=== PATIENT | female | born 1955 | race Caucasian/White ===

== ENCOUNTER 2018-04-09 07:15 | Inpatient (IN) | payer BC ==
[~2018-04-09 07:15] MED LIST: Bupivacaine 0.5%/EPINEPHrine 1:200,000 50 ML MDV ONE; Meropenem 500 MG SDV ONE
[2018-04-09] MEDS ORDERED: Scopolamine 1.5 MG Transdermal Patch TOP ONE (08:30)
[2018-04-09] MEDS ORDERED: Acetaminophen 500 MG Tab PO ONE (08:30)
[2018-04-09] MEDS ORDERED: Dextrose 5%-Lactated Ringers 1,000 ML IV SCH (08:30)
[2018-04-09] MEDS ORDERED: ceFAZolin 2 GM in Premix Bag 1 BAG IV ONE (08:30)
[2018-04-09] MEDS ORDERED: fentaNYL 250 MCG/5 ML SDV ONE ×2 (08:48→11:31)
[2018-04-09] MEDS ORDERED: Glycopyrrolate 0.2 MG/ML 5 ML MDV ONE (09:24)
[2018-04-09] MEDS ORDERED: Rocuronium 50 MG/5 ML Vial ONE (09:24)
[2018-04-09] MEDS ORDERED: Ondansetron 4 MG/2 ML SDV ONE (09:24)
[2018-04-09] MEDS ORDERED: Dexamethasone 4 MG/ML SDV ONE (09:24)
[2018-04-09] MEDS ORDERED: Succinylcholine 200 MG/10 ML MDV ONE (09:24)
[2018-04-09] MEDS ORDERED: Neostigmine Methylsulfate 1 MG/ML 5 ML Syringe ONE (09:24)
[2018-04-09] MEDS ORDERED: Propofol 200 MG/20 ML SDV ONE (09:24)
[2018-04-09] MEDS ORDERED: Naloxone 0.4 MG/ML SDV IV PRN (09:39)
[2018-04-09] MEDS ORDERED: HYDROmorphone/Normal Saline 15 MG/30 ML PCA IV PRN ×2 (09:39→12:26)
[2018-04-09] MEDS ORDERED: Ropivacaine 44 ML, Dexamethasone 8 MG, EPINEPHrine 0.4 MG, Sodium Chloride 0.9% 33.6 ML NERVRT SCH ×4 (10:00)
[2018-04-09] MEDS ORDERED: Ketamine 500 MG/5 ML MDV IV SCH (10:00)
[2018-04-09] MEDS ORDERED: Albuterol/Ipratropium 3.0-0.5 MG/3 ML Neb Soln NEB ONE (10:30)
[2018-04-09] MEDS ORDERED: Linezolid 200 MG/100 ML Bag IRR ONE (12:05)
[2018-04-09] MEDS ORDERED: hydrOXYzine HCl 100 MG/2 ML SDV IM ONE (12:36)
[2018-04-09] MEDS: Dextrose 5%-Lactated Ringers 1,000 ML IV SCH ×2 (14:00→20:41)
[2018-04-09] MEDS ORDERED: Ondansetron 4 MG/2 ML SDV IV PRN (14:25)
[2018-04-09] MEDS: Naproxen 250 MG Tab PO SCH (16:22)
[2018-04-09] MEDS: Acetaminophen 500 MG Tab PO SCH ×2 (16:22→21:48)
[2018-04-09] MEDS: VERIFY SCOP PATCH TOP SCH (16:25)
[2018-04-09] MEDS: Sodium Ferric Gluconate Cmplex 250 MG in Sodium Chloride 0.9% 100 ML IV SCH (18:11)
[2018-04-09] MEDS: ceFAZolin 2 GM in Premix Bag 1 BAG IV SCH (18:19)
[2018-04-10] MEDS: Acetaminophen 500 MG Tab PO SCH ×5 (03:00→21:52)
[2018-04-10] MEDS: Dextrose 5%-Lactated Ringers 1,000 ML IV SCH ×3 (03:01→23:00)
[2018-04-10] MEDS: ceFAZolin 2 GM in Premix Bag 1 BAG IV SCH ×2 (03:01→10:31)
[2018-04-10] MEDS ORDERED: HYDROmorphone 2 MG Tab PO PRN (07:45)
[2018-04-10] MEDS: Naproxen 250 MG Tab PO SCH ×2 (07:50→16:11)
[2018-04-10] MEDS: Pantoprazole 40 MG Tab.CR PO SCH (07:50)
[2018-04-10] MEDS: VERIFY SCOP PATCH TOP SCH (09:03)
[2018-04-10] MEDS: Bisacodyl 5 MG Tab PO SCH ×2 (09:03→20:30)
--- NOTE | 2018-04-10 13:20 | CT ---
Chest wo Cont CLINICAL HISTORY: Pulmonary nodules TECHNIQUE: Transverse scans were obtained from the thoracic inlet to the lung bases without contrast. COMPARISONS: None FINDINGS: There is an 8 mm nonsolid-appearing nodule in the right upper lobe on image #32. There is a 6 mm Nonsolid-like nodular focus in the left upper lobe on image #30 there is some streaky scarring or ate lectasis in both lung bases. There is some free intraperitoneal air. There is also diffuse subcutaneo us air in the upper abdominal soft tissues. This likely relates to recent abdominal surgery. There is a fluid-filled esophagus. The patient has had previous epigastric surgery likely gastric byp ass. The gastric remanent is food-filled.. There are bilateral renal calculi. IMPRESSION: There is an 8 mm round solid-appearing nodule in the right upper lobe and a 6 mm nonsolid appearing nodule in the left upper lobe. Chronology is uncertain. If patient has prior CTs is be hel pful. An addendum report will be issued Free intraperitoneal air under the hemidiaphragm with diffuse subcutaneous emphysema likely relating to recent abdominal surgery Previous gastric bypass procedure. There is moderate retained food in the gastric remanent
[2018-04-10] MEDS: Metoclopramide 10 MG/2 ML SDV IVPUSH SCH ×2 (14:18→20:30)
--- NOTE | 2018-04-10 15:56 | PCM.PN ---
- General Info Date of Service: 04/10/18 Admission Dx/Problem (Free Text): Incarcerated incisional hernia. Subjective Update: Patient is POD #1. She had not major problems overnight and her vitals were stable. She is up, ambulating and urinating. Urine output was documented to be low, but after discussing with the patient she states she was having trouble making it in the hat and had gone 3-4 times since surgery. This am she is not having any pain or nausea and wants to go home. We discussed that this is soon but if she can tolerate being po we would reevaluate this afternoon. Functional Status: Reports: Pain Controlled, Tolerating Diet, Ambulating, Urinating, Incentive Spirometry - Review of Systems General: Reports: No Symptoms HEENT: Reports: No Symptoms Pulmonary: Reports: No Symptoms Cardiovascular: Reports: No Symptoms Gastrointestinal: Reports: No Symptoms Genitourinary: Reports: No Symptoms Musculoskeletal: Reports: No Symptoms Skin: Reports: No Symptoms Neurological: Reports: No Symptoms Psychiatric: Reports: No Symptoms Systems Review Comment:: Remainder of ROS is negative for any pertinent negatives or positives. - Patient Data Vitals - Most Recent: Last Vital Signs Temp 97.8 F 04/10/18 10:36 Pulse 56 L 04/10/18 10:36 Resp 16 04/10/18 10:36 BP 108/51 L 04/10/18 10:36 Pulse Ox 94 L 04/10/18 10:36 Weight - Most Recent: 192 lb I&O - Last 24 Hours: Intake & Output 04/10/18 04/10/18 04/10/18 06:59 14:59 22:59 Intake Total 2316 150 Output Total 200 450 Balance 2116 -300 Lab Results Last 24 Hours: Laboratory Results - last 24 hr 04/09/18 04/09/18 Range/Units 13:28 13:28 Hep Bs Antibody, Quant <3.1 L (Immunity>9.9) mIU/mL Hepatitis C Antibody <0.1 (0.0-0.9) s/co ratio Med Orders - Current: Current Medications Acetaminophen (Tylenol Extra Strength) 1,000 mg PO Q6H [facility] Last Admin: 04/10/18 10:28 Dose: 1,000 mg Bisacodyl (Dulcolax) 10 mg PO BID [facility] Last Admin: 06/29/18 09:03 Dose: 10 mg Hydromorphone HCl (Dilaudid) 2 - 4 mg PO Q4H PRN PRN Reason: Pain Last Admin: 04/10/18 09:01 Dose: 2 mg Ferric Sodium Gluconate Complex 250 mg/ Sodium Chloride 120 mls @ 60 mls/hr IV Q24H [facility] Stop: 04/10/18 17:59 Last Admin: 04/09/18 18:11 Dose: 60 mls/hr Dextrose/Lactated Ringer's (Dextrose 5%-Lactated Ringers) 1,000 mls @ 100 mls/ hr IV ASDIRECTED [facility] Last Admin: 04/10/18 13:13 Dose: 100 mls/hr Metoclopramide HCl (Reglan) 10 mg IVPUSH Q6H [facility] Last Admin: 04/10/18 14:18 Dose: 10 mg Miscellaneous Information (Remove Patch) 0 ea TRDERM ONETIME ONE Stop: 04/11/18 10:01 Naproxen (Naprosyn) 500 mg PO BIDMEALS [facility] Last Admin: 04/10/18 07:50 Dose: 500 mg Verify Scop Patch 0 each TOP DAILY [facility] Last Admin: 04/10/18 09:03 Dose: Not Given Ondansetron HCl (Zofran) 4 mg IV Q4H PRN PRN Reason: N/V Last Admin: 04/10/18 10:42 Dose: 4 mg Pantoprazole Sodium (Protonix) 40 mg PO ACBREAKFAST [facility] Last Admin: 04/10/18 07:50 Dose: 40 mg Senna/Docusate Sodium (Senna Plus) 1 tab PO BID [facility] Last Admin: 04/10/18 09:03 Dose: 1 tab Discontinued Medications Acetaminophen (Tylenol Extra Strength) 1,000 mg PO ONETIME ONE Stop: 04/09/18 08:31 Last Admin: 04/09/18 08:40 Dose: 1,000 mg Albuterol/Ipratropium (Duoneb 3.0-0.5 Mg/3 Ml) 3 ml NEB ONETIME ONE Stop: 04/09/18 10:31 Last Admin: 04/09/18 10:54 Dose: 3 ml Bupivacaine HCl/Epinephrine Bitart (Marcaine 0.5%/Epinephrine 1:200,000) Confirm Administered Dose 50 ml .ROUTE .STK-MED ONE Stop: 04/09/18 06:45 Last Admin: 04/09/18 12:20 Dose: 20 ml Ropivacaine 44 ml/Dexamethasone 8 mg/Epinephrine HCl 0.4 mg/ Sodium Chloride 33.6 ml 0 ml NERVRT ASDIRECTED [facility] Last Admin: 04/09/18 11:34 Dose: 80 syringe Dexamethasone (Dexamethasone) Confirm Administered Dose 4 mg .ROUTE .ST-MED ONE Stop: 04/09/18 09:25 Fentanyl (Sublimaze) Confirm Administered Dose 250 mcg .ROUTE .ST-MED ONE Stop: 04/09/18 08:49 Fentanyl (Sublimaze) Confirm Administered Dose 250 mcg .ROUTE .[facility]-MED ONE Stop: 04/09/18 11:32 Glycopyrrolate (Robinul) Confirm Administered Dose 1 mg .ROUTE .[facility] ONE Stop: 04/09/18 09:25 Hydromorphone HCl (Dilaudid Client Delivery Specialist 15 Mg In Ns 30 Ml) 0 mg IV ASDIRECTED PRN; Protocol PRN Reason: BET TAKER PAIN CONTROL Last Admin: 04/09/18 12:42 Dose: 0.3 mg Hydroxyzine HCl (Vistaril) 75 mg IM ONETIME ONE Stop: 04/09/18 12:37 Last Admin: 04/09/18 12:48 Dose: 75 mg Cefazolin Sodium/Dextrose 2 gm (/ Premix) 50 mls @ 100 mls/hr IV ONETIME ONE Stop: 04/09/18 08:59 Last Admin: 04/09/18 11:02 Dose: 100 mls/hr Dextrose/Lactated Ringer's (Dextrose 5%-Lactated Ringers) 1,000 mls @ 100 mls/ hr IV ASDIRECTED [facility] Last Admin: 04/09/18 08:54 Dose: 100 mls/hr Ketamine HCl 100 mg/ Sodium (Chloride) 100 mls @ 18.6 mls/hr IV ASDIRECTED [facility] Linezolid (Zyvox) Confirm Administered Dose 300 mls @ as directed .ROUTE .[facility]- MED ONE Stop: 04/09/18 11:44 Dextrose/Lactated Ringer's (Dextrose 5%-Lactated Ringers) 1,000 mls @ 150 mls/ hr IV ASDIRECTED [facility] Last Admin: 04/10/18 03:01 Dose: 150 mls/hr Cefazolin Sodium/Dextrose 2 gm (/ Premix) 50 mls @ 100 mls/hr IV Q8H [facility] Stop: 04/10/18 10:59 Last Admin: 04/10/18 10:31 Dose: 100 mls/hr Ketamine HCl (Ketalar) 44 mg IV ASDIRECTED [facility] Linezolid (Zyvox) 200 mg IRR .STK-MED ONE Stop: 04/09/18 12:06 Last Admin: 04/09/18 12:05 Dose: 200 mg Meropenem (Merrem) Confirm Administered Dose 500 mg .ROUTE .STK-MED ONE Stop: 04/09/18 06:45 Last Admin: 04/09/18 11:30 Dose: 500 mg Naloxone HCl (Narcan) 0.1 mg IV ASDIRECTED PRN PRN Reason: decreased respiratory rate Neostigmine Methylsulfate (Neostigmine) Confirm Administered Dose 5 mg .ROUTE .STK-MED ONE Stop: 04/09/18 09:25 Ondansetron HCl (Zofran) Confirm Administered Dose 4 mg .ROUTE .STK-MED ONE Stop: 04/09/18 09:25 Propofol (Diprivan 20 Ml) Confirm Administered Dose 200 mg .ROUTE .STK-MED ONE Stop: 04/09/18 09:25 Rocuronium Eagle (Zemuron) Confirm Administered Dose 50 mg .ROUTE .STK-MED ONE Stop: 04/09/18 09:25 Scopolamine (Transderm-Scop) 1.5 mg TOP ONETIME ONE Stop: 04/09/18 08:31 Last Admin: 04/09/18 08:40 Dose: 1.5 mg Succinylcholine Chloride (Quelicin) Confirm Administered Dose 200 mg .ROUTE .STK -MED ONE Stop: 04/09/18 09:25 - Exam General: Alert, Oriented, Cooperative, No Acute Distress HEENT: Pupils Equal, Mucous Membr. Moist/[place] Neck: Supple Lungs: Clear to Auscultation, Normal Respiratory Effort Cardiovascular: Regular Rate, Regular Rhythm GI/Abdominal Exam: Normal Bowel Sounds Extremities: Normal Range of Motion Skin: Warm, Dry, Intact Wound/Incisions: Healing Well, Dressing Dry and Intact, No Drainage Neurological: No New Focal Deficit - Problem List Review Problem List Initiated/Reviewed/Updated: Yes - Assessment Assessment:: Status post recurrent incarcerated incisional hernia repair with extensive intraperitoneal adhesions and vicryl mesh placement. - Plan Plan:: 1. Chest CT without contrast 2. Bisacodyl 10mg po bid 3. Dextrose 5% LR at 100 MLS/HR IV as directd 4. Docusate sodium/sennosides 1 tab po bid 5. hydromorphone 2-4mg po q4h prn for pain 6. Stop hydromorhpne/normal saline o mg (dilaudid BET TAKER 15 mg in 30 m) IV as directed 7. Stop naloxone 0.1mg IV as directed prn for pain 8. Stop dextros 5% LR 1,000ml IV as directed 9. Reevaluate prn or in am
[2018-04-10] MEDS: Sodium Ferric Gluconate Cmplex 250 MG in Sodium Chloride 0.9% 100 ML IV SCH (16:03)
[2018-04-11] MEDS: Metoclopramide 10 MG/2 ML SDV IVPUSH SCH ×4 (02:09→20:18)
[2018-04-11] MEDS: Acetaminophen 500 MG Tab PO SCH ×4 (04:48→22:29)
[2018-04-11] MEDS: Pantoprazole 40 MG Tab.CR PO SCH (08:06)
[2018-04-11] MEDS: Naproxen 250 MG Tab PO SCH ×2 (08:06→16:23)
[2018-04-11] MEDS ORDERED: Sodium Chloride 0.9% 10 ML Syringe FLUSH PRN (08:29)
[2018-04-11] MEDS ORDERED: Iohexol 647 MG/ML 10 ML SDV IV PRN (08:29)
[2018-04-11] MEDS ORDERED: Sodium Chloride 0.9% 10 ML SDV FLUSH ONE (08:29)
[2018-04-11] MEDS ORDERED: Iopamidol 612 MG/ML 150 ML Bottle IV PRN (08:29)
[2018-04-11] MEDS ORDERED: Sodium Chloride 0.9% 80 ML IV SCH (08:30)
[2018-04-11] MEDS: Dextrose 5%-Lactated Ringers 1,000 ML IV SCH (08:31)
[2018-04-11] MEDS ORDERED: Lactated Ringers 1,000 ML IV SCH (09:12)
[2018-04-11] MEDS: VERIFY SCOP PATCH TOP SCH (09:13)
[2018-04-11] MEDS ORDERED: Remove SCOP Patch TRDERM ONE (10:00)
[2018-04-11] MEDS: Bisacodyl 5 MG Tab PO SCH ×2 (11:15→20:19)
[2018-04-12] MEDS: Metoclopramide 10 MG/2 ML SDV IVPUSH SCH ×2 (01:09→08:17)
[2018-04-12] MEDS: Acetaminophen 500 MG Tab PO SCH ×2 (03:22→09:39)
[2018-04-12] MEDS: Pantoprazole 40 MG Tab.CR PO SCH (08:16)
[2018-04-12] MEDS: Naproxen 250 MG Tab PO SCH (08:16)
[2018-04-12] MEDS: Bisacodyl 5 MG Tab PO SCH (08:17)
[2018-04-12] MEDS: VERIFY SCOP PATCH TOP SCH (08:18)
[2018-04-12] MEDS ORDERED: Pneumococcal Polyvalent-23 Vaccine 0.5 ML SDV IM ONE (10:00)
--- NOTE | 2018-04-13 10:44 | CR ---
Abdomen 2V AP Flat Upright INDICATION: follow up ileus patient had surgery on April 09. COMPARISON: Nothing recent at the time of this report for comparison. FINDINGS: 3 views. Moderate amount of air and stool in the colon. No signs of bowel obstruction. Pos toperative changes in the abdomen and pelvis. Tiny amount of free air under the right hemidiaphragm l ikely postoperative. Subcutaneous air over the abdomen. Mild compression L1 vertebral body. If symptoms persist, recommend follow-up exam.
--- NOTE | 2018-04-13 12:34 | PN ---
DATE OF SERVICE: 04/11/2018 The patient has been afebrile with stable vital signs. She has however remained quite nauseated. CT scan and chest x-ray partial obstruction of the jejunojejunostomy with there being quite a bit of retained old food. It appeared most likely the area of the Sarah limb proximal to that anastomosis. We will clarify that issue today with CT scan of the abdomen and pelvis, and she may need to have an operative revision of that area depending on the above findings. Forest Howell MD Job #: [id number]
--- NOTE | 2018-04-14 07:15 | DISCH ---
FINAL DIAGNOSES: 1. Recurrent incarcerated incisional hernia. 2. Extensive intraabdominal peritoneal adhesions. SECONDARY DIAGNOSES: 1. Iron-deficiency anemia. 2. History of fibromyalgia. 3. Bariatric surgery status. 4. Transient postoperative ileus. 5. Solitary pulmonary nodule, being followed by CT scan. OPERATIVE PROCEDURES: This was done on 04/09, diagnostic laparoscopy with lysis of extensive adhesions. 1. Repair of recurrent incarcerated incisional hernia with mesh. 2. Placement of Vicryl mesh to limit the postoperative adhesion formation. SUMMARY: This is a 62-year-old female presenting with increasingly symptomatic recurrent incisional hernia that is located in the upper abdomen, slightly to the left of midline. At the time of diagnostic laparoscopy, it was noted to occur just above the previously placed mesh. The surgery was done on the day of admission, and postoperatively, the patient did have a transient degree of nausea and ileus, which at this point seems to have resolved. She is tolerating diet satisfactorily and moving her bowels. She is taking only Tylenol at this point for pain and will be discharged home, to follow up with Deepika Van PA-C, on 04/20/2018. Otherwise, she will be resuming her usual preadmission medications. The patient has some pulmonary nodules that are being followed by CAT scan. A CAT scan was obtained today which showed these all to be quite small, but comparison CAT scan was not yet available. We will tentatively recommend the patient repeat CT scan of the chest in 6 months to follow the nodules and modify that if alterations in the report become evident.
--- NOTE | 2018-04-20 08:14 | OR ---
DATE OF PROCEDURE: 04/09/2018 PREOPERATIVE DIAGNOSIS: Recurrent incarcerated incisional hernia. POSTOPERATIVE DIAGNOSES: 1. Recurrent incarcerated incisional hernia. 2. Extensive intraperitoneal adhesions. OPERATIVE PROCEDURES: Diagnostic laparoscopy with lysis of extensive adhesions , and: 1. Repair of recurrent incarcerated incisional hernia with mesh (89456). 2. Placement of Vicryl mesh to displace the viscera from pelvic and abdominal wall to limit recurrent adhesion formation ([id number]). ANESTHESIA: General. ASSISTANTS: 1. Deepika Van PA-C. 2. RICHARD Figueroa. INDICATION FOR PROCEDURE: This is a 62-year-old presenting with area of recurrent hernia formation in the upper abdomen centered somewhat to the left of the midline and likely is an area just superior to the previously placed mesh. Plan is to proceed with a diagnostic laparoscopy, laparotomy if necessary, and repair of the hernia most likely with mesh technique. Potential risks including bleeding, infection, injury to underlying viscera, problems with the hernia recurring or the mesh becoming infected, as well as the remote possibility of cardiopulmonary, septic, or hemorrhagic complications leading to were discussed, and the patient wishes to proceed. DETAILS OF PROCEDURE: The patient was taken to the operating room and placed in a supine position. After general endotracheal anesthesia was induced, a De La O catheter was inserted and the abdomen was prepped and draped. In the left lower quadrant, a transverse incision was made and the peritoneal cavity entered under direct vision with Optiview trocar, inflated to 15 mmHg pressure with CO2. Following this, eventually, 4 additional trocars were placed across the upper and mid abdomen. The patient was noted to have quite extensive adhesions between the previously placed mesh and the underlying omentum as well as some areas of focal small bowel. These were taken down with Harmonic scalpel along with some sharp dissection in the area around the small bowel. Once these adhesions were taken down, the area of herniation could be seen. This was located just to the left of the midline and superior to the previously placed mesh and initially contained some incarcerated omentum as well as loop of the small bowel. This was dissected free once again with combination of sharp and Harmonic scalpel dissection. Once this was completed, the repair appeared to be satisfactorily set up for placement of the new mesh. A circular Ventralight hernia mesh 12 inches in diameter was then selected, and soaked in antibiotic-containing saline solution. This was then placed into the intraperitoneal location, and through a small stab wound over the center of the area of herniation, the catheter was brought up. This automatically oriented to the mesh in the correct location. Balloon was then inflated and the mesh was then affixed circumferentially with the absorbable tacking screws, upon completion of the mesh fixation appeared to be satisfactorily well away from the areas of herniation. The balloon was then deflated and withdrawn, and at that point, no further problems were noted. Trocars were then sequentially removed. The fascia at the 12 mm site was closed with 0 Vicryl stitch and the skin with 4-0 Vicryl skin stitch, dressing applied. Prior to removal of the final trocars, a Vicryl mesh was then placed underneath the currently placed mesh as well as the previously placed mesh as well as from that point down into the pelvis, thus providing some additional separation between the viscera and the mesh and the pelvic and abdominal wall to limit recurrent adhesion formation. Once the trocars were removed and the fascia was closed at the 12 mm sites, the skin was closed with 4-0 Vicryl skin stitch. Dressing was applied. The patient was taken to the recovery room in satisfactory condition. Physician economist research assistant, Deepika Van, played an essential role in assisting in this case, helping to position the patient, retract structures as needed, as well as suturing and cutting sutures when indicated. Her presence improved patient's safety and decreased the operative time. Forest Howell MD Job #: [id number] [facility]
== END 2018-04-12 10:40 | disposition home or self-care (01) | DRG 227 ==
LOC: EDSTATUS 07:15 → JP.SDSSCHI 08:18 → JP.SDS 08:18 → JP.2SS 12:30
PROVIDERS: ADMIT Surgery; ATTEND Surgery
PROC: 0WUF4JZ Supplement Abdominal Wall with Synthetic Substitute, Percutaneous Endoscopic Approach (ICD-10-PCS; 2018-04-09)
PROC: 3E0M45Z Introduction of Adhesion Barrier into Peritoneal Cavity, Percutaneous Endoscopic Approach (ICD-10-PCS; 2018-04-09)
PROC: 0DNU4ZZ Release Omentum, Percutaneous Endoscopic Approach (ICD-10-PCS; 2018-04-09)
PROC: 0DN84ZZ Release Small Intestine, Percutaneous Endoscopic Approach (ICD-10-PCS; 2018-04-09)
PROC: 3E0234Z Introduction of Serum, Toxoid and Vaccine into Muscle, Percutaneous Approach (ICD-10-PCS; principal; 2018-04-12)
DX: K43.0 Incisional hernia with obstruction, without gangrene (principal); K91.2 Postsurgical malabsorption, not elsewhere classified; E53.9 Vitamin B deficiency, unspecified; K66.0 Peritoneal adhesions (postprocedural) (postinfection); F17.210 Nicotine dependence, cigarettes, uncomplicated; E65 Localized adiposity; R91.8 Other nonspecific abnormal finding of lung field; D50.9 Iron deficiency anemia, unspecified; M79.7 Fibromyalgia; Z23 Encounter for immunization; Z98.84 Bariatric surgery status; Z79.899 Other long term (current) drug therapy
CPT/HCPCS: 36415; 71250; 71250-26; 74019; 74019-26; 74177; 80053; 82962; 83735; 84100; 85027; 86706; 86803; 87449; 88302; 90732; 94640; 94762; A9270-GY; C1781; J0171; J0330; J0690; J1100; J1170; J2020; J2185; J2405; J2704; J2710; J2765; J2795; J2916; J3010; J3410; J7030; J7042; J7050; J7120; J7620